=== PATIENT | male | born 1980 | race Caucasian/White ===

== ENCOUNTER 2019-02-12 20:39 | Emergency (ER) | payer BC ==
[2019-02-12] MEDS ORDERED: Bacitracin Oint 1 GM U/D Packet TOP ONE (20:44)
--- NOTE | 2019-02-12 21:21 | EDM.PDOC ---
ED HPI GENERAL MEDICAL PROBLEM - General Chief Complaint: Skin Complaint Stated Complaint: FISH HOOK Time Seen by Provider: 02/12/19 21:13 Source of Information: Reports: Patient, Family, RN Notes Reviewed History Limitations: Reports: No Limitations - History of Present Illness INITIAL COMMENTS - FREE TEXT/NARRATIVE: Patient presents with complaints of fish hook to left thumb prior to arrival. He did try to remove the hook but was unable to. Left finger Pain Score (Numeric/FACES): 6 - Related Data Allergies Allergy/AdvReac Type Severity Reaction Status Date / Time No Known Allergies Allergy Verified 02/12/19 21:05 Home Meds: Home Meds NK [No Known Home Meds] 02/12/19 [History] Past Medical History - Past Health History Medical/Surgical History: Denies Medical/Surgical History Social & Family History - Family History Family Medical History: Noncontributory - Tobacco Use Smoking Status *Q: Never Smoker Second Hand Smoke Exposure: No - Recreational Drug Use Recreational Drug Use: No ED ROS GENERAL - Review of Systems Review Of Systems: See Below Constitutional: Reports: No Symptoms HEENT: Reports: No Symptoms Respiratory: Reports: No Symptoms Cardiovascular: Reports: No Symptoms Musculoskeletal: Reports: Other (Left thumb pain) Skin: Reports: Other (fish hook to left thumb, one prong ) Neurological: Reports: No Symptoms ED EXAM, SKIN/RASH Exam: See Below Text/Narrative:: Jhon presents today for complaints of fish hook to left thumb [employer]. Exam Limited By: No Limitations General Appearance: Alert, WD/WN, No Apparent Distress Head: Atraumatic, Normocephalic Respiratory/Chest: No Respiratory Distress, Lungs Clear, Normal Breath Sounds, No Accessory Muscle Use, Chest Non-Tender Cardiovascular: Normal Peripheral Pulses, Regular Rate, Rhythm, No Edema, No Gallop, No Murmur, No Rub Peripheral Pulses: 2+: Radial (L) Skin: Warm, Dry, Normal Color, No Rash, Other (single prong fish hook to left thumb pad) Associated features: Tenderness ED SKIN PROCEDURES - Foreign Body Removal Indication:: fish hook to left thumb Consent Obtained:: Patient Performing Doctor:: Elisabeth Staley Foreign Body Other Location Comment:: Left thumb fish hook Anesthesia Type: Other (see below) (thumb prepped with alcohol, lidocaine 0.5ml to left thumb, hook pushed through, cut and removed. Patient tolerated well. Finger cleansed with soap and water, bacitracin antibiotic ointment applied with pressure dressing. Education provided, remove dressing in 15-20 minutes.) Complications:: No Course - Vital Signs Last Recorded V/S: Last Vital Signs Temp 36.7 C 02/12/19 21:20 Pulse 132 H 02/12/19 21:20 Resp 16 02/12/19 21:20 BP 172/106 H 02/12/19 21:20 Pulse Ox 96 02/12/19 21:20 - Orders/Labs/Meds Meds: Medications Discontinued Medications Generic Name Dose Route Start Last Admin Trade Name Agueda PRN Reason Stop Dose Admin Bacitracin 1 dose 02/12/19 20:44 02/12/19 21:06 Bacitracin Oint 1 Gm TOP 02/12/19 20:45 1 dose ONETIME ONE Administration Lidocaine HCl 5 ml 02/12/19 20:43 02/12/19 21:06 Xylocaine-Mpf 1% INJECT 02/12/19 20:44 5 ml ONETIME ONE Administration - Re-Assessments/Exams Free Text/Narrative Re-Assessment/Exam: 02/12/19 21:18 Tetanus up to date. Departure - Departure Time of Disposition: 21:20 Disposition: Home, Self-Care 01 Condition: Good Clinical Impression: Fish hook injury of finger - Discharge Information *PRESCRIPTION DRUG MONITORING PROGRAM REVIEWED*: Not Applicable *COPY OF PRESCRIPTION DRUG MONITORING REPORT IN PATIENT ALVAREZ: Not Applicable Instructions: Puncture Wound, [id number] Referrals: PCP,None [Primary Care Provider] - Forms: ED Department Discharge Additional Instructions: Keep finger clean and dry, monitor for signs and symptoms of infection. Take ibuprofen and tylenol as needed for pain. Return for any worsening, issues or concerns. - Assessment/Plan Assessment:: Fish hook left thumb Plan: Keep finger clean and dry, monitor for signs and symptoms of infection. Take ibuprofen and tylenol as needed for pain. Return for any worsening, issues or concerns.
== END 2019-02-12 21:29 | disposition home or self-care (01) ==
LOC: JP.ED 20:39
DX: S60.352A Superficial foreign body of left thumb, initial encounter (principal); W45.8XXA Other foreign body or object entering through skin, initial encounter
CPT/HCPCS: 99282; J2001